=== PATIENT | male | born 1960 | race Caucasian/White ===

== ENCOUNTER 2023-12-06 14:12 | Outpatient (CLI) | payer BC, SELFPAY ==
--- NOTE | ~2023-12-06 | XR_ITS ---
XR hand RT min 3V Ordering provider: Josefa Birmingham MD History: . M65.4 - Radial styloid tenosynovitis [de Quervain] . Comparison: None. FINDINGS: BONES: No acute fracture or dislocation. JOINT SPACES: Narrowing of the proximal and distal interphalangeal joints. SOFT TISSUES: Normal. IMPRESSION: No acute osseous abnormality right hand. Osteoarthritic changes. Reviewed, dictated and finalized at location A.
--- NOTE | ~2023-12-06 | XR_ITS ---
XR hand LT min 3V Ordering provider: Josefa Birmingham MD History: . M65.4 - Radial styloid tenosynovitis [de Quervain] . Comparison: None. FINDINGS: BONES: No acute fracture or dislocation. JOINT SPACES: Narrowing of the proximal and distal interphalangeal joints suggestive of osteoarthriti s. SOFT TISSUES: Unremarkable. IMPRESSION: No acute osseous abnormality left hand. Osteoarthritic changes. Reviewed, dictated and finalized at location A.
== END 2023-12-06 14:13 | disposition home or self-care (01) ==
LOC: ANHIMG 14:19
PROVIDERS: PCP Emergency Medicine; Visit Provider Plastic Surgery
DX: M65.4 Radial styloid tenosynovitis [de Quervain] (principal); G56.03 Carpal tunnel syndrome, bilateral upper limbs; M19.042 Primary osteoarthritis, left hand; M19.041 Primary osteoarthritis, right hand
CPT/HCPCS: 73130

== ENCOUNTER 2024-01-04 13:18 | Outpatient (CLI) | payer BC, SELFPAY ==
--- NOTE | 2024-01-04 14:15 | NEURO_ITS ---
Impression: # Non-diabetic complains of numbness of hands. # Severe bilateral Carpal Tunnel Syndrome. # No ulnar neuropathy. # Needle/EMG exam neurogenic in bilateral APB?s with mild scarcity noted in right extensor muscles. Nerve Conduction Studies Anti Sensory Summary Table Stim Site NR Peak (ms) P-T Amp (?V) Site1 Site2 Delta-P (ms) Dist (cm) David (m/s) Left Median Anti Sensory (2-3nd Digit) NO RESPONSE Wrist NR Wrist 2-3nd Digit 14.0 Wrist NR Wrist 2-3nd Digit 14.0 Right Median Anti Sensory (2-3nd Digit) Wrist 8.3 10.1 Wrist 2-3nd Digit 8.3 14.0 17 Wrist 9.1 17.8 Wrist 2-3nd Digit 8.3 14.0 17 Left Radial Anti Sensory (Base 1st Digit) Wrist 2.0 36.7 Wrist Base 1st Digit 2.0 0.0 Right Radial Anti Sensory (Base 1st Digit) Wrist 2.6 11.9 Wrist Base 1st Digit 2.6 0.0 Left Ulnar Anti Sensory (5th Digit) Wrist 2.9 13.2 Wrist 5th Digit 2.9 14.0 48 Right Ulnar Anti Sensory (5th Digit) Wrist 2.9 10.6 Wrist 5th Digit 2.9 14.0 48 Motor Summary Table Stim Site NR Onset (ms) O-P Amp (mV) Site1 Site2 Delta-0 (ms) Dist (cm) David (m/s) Left Median Motor (Abd Poll Brev) NO RESPONSE Wrist NR Elbow Wrist 32.0 Elbow 9.5 1.6 Right Median Motor (Abd Poll Brev) NO RESPONSE Wrist NR Elbow Wrist 26.0 Elbow NR Left Ulnar Motor (Abd Dig Minimi) Wrist 2.9 5.5 A Elbow Wrist 5.8 32.0 55 A Elbow 8.7 4.9 Right Ulnar Motor (Abd Dig Minimi) Wrist 2.7 6.2 A Elbow Wrist 5.4 32.0 59 A Elbow 8.1 4.8 F Wave Studies NR F-Lat (ms) L-R F-Lat (ms) Left Median (Mrkrs) (Abd Poll Brev) 30.99 Right Median (Mrkrs) (Abd Poll Brev) NO RESPONSE NR Left Ulnar (Mrkrs) (Abd Dig Min) 30.24 0.57 Right Ulnar (Mrkrs) (Abd Dig Min) 29.67 0.57 EMG Side Muscle Nerve Root Ins Act Fibs Amp Dur Recrt Comment Right 1stDorInt Ulnar C8-T1 Nml Nml Nml Nml Nml Right Ext Indicis Radial (Post Int) C7-8 Nml Nml Nml Nml +1 Right Ext Digitorum Radial (Post Int) C7-8 Nml Nml Nml Nml +1 Right BrachioRad Radial C5-6 Nml Nml Nml Nml Nml Right PronatorTeres Median C6-7 Nml Nml Nml Nml Nml Right Abd Poll Brev Median C8-T1 Nml Nml Nml >12ms +3 Right ABD Dig Min Ulnar C8-T1 Nml Nml Nml Nml Nml Left 1stDorInt Ulnar C8-T1 Nml Nml Nml Nml Nml Left Ext Indicis Radial (Post Int) C7-8 Nml Nml Nml Nml Nml Left Ext Digitorum Radial (Post Int) C7-8 Nml Nml Nml Nml Nml Left BrachioRad Radial C5-6 Nml Nml Nml Nml Nml Left PronatorTeres Median C6-7 Nml Nml Nml Nml Nml Left Abd Poll Brev Median C8-T1 Nml Nml Nml >12ms +3 Left ABD Dig Min Ulnar C8-T1 Nml Nml Nml Nml Nml Right Biceps Musculocut C5-6 Nml Nml Nml Nml Nml Right Triceps Radial C6-7-8 Nml Nml Nml Nml Nml Right Deltoid Axillary C5-6 Nml Nml Nml Nml Nml Left Biceps Musculocut C5-6 Nml Nml Nml Nml Nml Left Triceps Radial C6-7-8 Nml Nml Nml Nml Nml Left Deltoid Axillary C5-6 Nml Nml Nml Nml Nml MTDD
== END 2024-01-04 13:19 | disposition home or self-care (01) ==
PROVIDERS: PCP Nurse Practitioner Family; Visit Provider Plastic Surgery
DX: G56.03 Carpal tunnel syndrome, bilateral upper limbs (principal); M65.4 Radial styloid tenosynovitis [de Quervain]
CPT/HCPCS: 95886; 95911

== ENCOUNTER 2024-03-17 13:29 | Outpatient (CLI) | payer BC, SELFPAY ==
[2024-03-17 15:14] LABS: Anion Gap 7 mmol/L (4-12); Blood Urea Nitrogen 14 mg/dL (9-20); Calcium 9.1 mg/dL (8.4-10.2); Carbon Dioxide 30 mmol/L (22-30); Chloride 102 mmol/L (98-107); Estimated Glomerular Filt Rate > 60; Glucose 120 mg/dL (65-110); Potassium 3.5 mmol/L (3.4-5.0); Sodium 139 mmol/L (137-145)
== END 2024-03-17 13:30 | disposition home or self-care (01) ==
LOC: ANHSURGERY 13:32
PROVIDERS: Anesthesiology; PCP Nurse Practitioner Family; Visit Provider Plastic Surgery
DX: Z01.818 Encounter for other preprocedural examination (principal); Z79.899 Other long term (current) drug therapy
CPT/HCPCS: 36415; 80048

== ENCOUNTER 2024-03-22 00:22 | Day surgery (SDC) | payer BC, SELFPAY ==
[2024-03-16 10:30] VITALS: BMI 29.9
--- NOTE | 2024-03-16 10:37 | PC.NURSE ---
Report to the Outpatient Waiting Room, entrance under the green pavilion located off [facility], at time _1100_ on date _[id number]_. Planned Procedure Time: _1pm_.? Time changes happen often and if your time is changed the preop area will call you the afternoon before. - You and your visitor will be asked to self-screen and do not enter if you have any COVID symptoms. Please call surgeon if you need to reschedule. - A mask is optional within the hospital at this time. Patients may have clear liquids (water, carbonated beverages, clear teas, apple juice) until 3 hours prior to surgery with a maximum of 20 ounces. - No food from midnight until time of surgery and no smoking Take only the following medications with a SIP of water on the morning of surgery: __Amlodipine____ DO NOT STOP ANY OF YOUR OTHER PRESCRIPTION MEDICATIONS PRIOR TO SURGERY EXCEPT THE FOLLOWING Medications to discontinue per physician __Multivitamin and patient says he's stopping aspirin also____ Date to take last aofu__[id number]_ Please no make-up, nail swedish, hairspray, perfume, deodorant, or body powder the day of surgery.? No jewelry (including any body piercings) or valuables the day of surgery, leave them at home.? Please take a shower or bath the night before, or the morning of, surgery with an antibacterial soap.? Wear comfortable, loose fitting clothing.? - Jewelry must be removed prior to entering the operating room.? Rings and piercings that are not removed may be cut off. - The hospital will not accept responsibility for valuables.? - Please leave all valuables, including medications, at home the day of surgery. If you are going home after surgery, a licensed skip load driver must drive you home.? - NO public transportation without another adult if you receive anesthesia. - We recommend that an adult stay with you for 24 hours following discharge. - We also recommend that you do not drive, make important decision, drink alcoholic beverages, or take any drugs that were not prescribed by your health care provider for at least 24 hours after your discharge time. Follow any additional instructions given to you from your surgeon. Telephone instructions given to ___George__and asked if any additional questions and then verbalized understanding. Patient advised to call surgeon office or pre surgery nurse liaison [phone] if any additional questions.
--- NOTE | 2024-03-16 10:48 | PC.NURSE ---
Report to the Outpatient Waiting Room, entrance under the green pavilion located off [facility], at time _1100_ on date _[phone]_. Planned Procedure Time: _1pm_.? Time changes happen often and if your time is changed the preop area will call you the afternoon before. - You and your visitor will be asked to self-screen and do not enter if you have any COVID symptoms. Please call surgeon if you need to reschedule. - A mask is optional within the hospital at this time. May have clear liquids (water, carbonated beverages, clear teas, apple juice) until 5am with a maximum of 20 ounces. Nothing to drink after 5am. - No food from midnight until time of surgery and no smoking Take only the following medications with a SIP of water on the morning of surgery: __Amlodipine____ DO NOT STOP ANY OF YOUR OTHER PRESCRIPTION MEDICATIONS PRIOR TO SURGERY EXCEPT THE FOLLOWING Medications to discontinue per physician ___Multivitamin and patient says he's stopping Aspirin also___ Date to take last whlz__[id number]_ Please no make-up, nail ivorian, hairspray, perfume, deodorant, or body powder the day of surgery.? No jewelry (including any body piercings) or valuables the day of surgery, leave them at home.? Please take a shower or bath the night before, or the morning of, surgery with an antibacterial soap.? Wear comfortable, loose fitting clothing.? - Jewelry must be removed prior to entering the operating room.? Rings and piercings that are not removed may be cut off. - The hospital will not accept responsibility for valuables.? - Please leave all valuables, including medications, at home the day of surgery. If you are going home after surgery, a licensed lumber driver must drive you home.? - NO public transportation without another adult if you receive anesthesia. - We recommend that an adult stay with you for 24 hours following discharge. - We also recommend that you do not drive, make important decision, drink alcoholic beverages, or take any drugs that were not prescribed by your health care provider for at least 24 hours after your discharge time. Follow any additional instructions given to you from your surgeon. Telephone instructions given to __George___and asked if any additional questions and then verbalized understanding. Patient advised to call surgeon office or pre surgery nurse liaison [phone] if any additional questions.
--- NOTE | 2024-03-22 07:07 | PM.HPGS ---
History of Present Illness History of Present Illness Chief complaint: radical styloid tenosynovitis,bilat carp tunn synd Narrative: Patient seen and examined in pre-operative holding area. No interval change in medical history or symptoms. Patient recalls previous discussion of benefits and alternatives to procedure. Continues to desire to proceed with left endoscopic possible open carpal tunnel release. Reviewed procedure, post-op expectations and risks including but not limited to bleeding, infection, injury to tendon/nerve/vessel, decreased hand function, stiffness, RSD, no change or worsening of symptoms. I discussed the possible use of assistants and their participation in the case. Patient stated understanding and signed the consent form wishing to proceed. Review of Systems Review of Systems: All systems reviewed & are unremarkable except as noted in HPI and below PMFSH Social History Social History Smoking packs per day: 1 Smoking cigarettes per day: 20.0 Years smoked: 20 Smoking pack-years: 20.00 Smoking status: Former smoker Tobacco type: cigarettes Smoking end date: 03/16/04 Alcohol intake: current Drinks per week: 8 Do You Feel Safe in your Home?: Yes Lack of Transportation: No Lack of Food: Never True Current Housing: I Have Housing Concerned About Future Housing: No Difficulty Paying Gas/Electric Bills: No Difficulty Paying for Meds: No Currently Unemployed: No Education: High School Diploma/GED Difficulty w/ Childcare or Family Care: No Living arrangements: with family Spiritual care concerns: No Meds Home Medications and Allergies Home Medications Medication Instructions Recorded Confirmed Type amlodipine 10 mg tablet 10 mg PO DAILY 03/16/24 03/22/24 History aspirin 81 mg tablet 81 mg PO DAILY 03/16/24 03/22/24 History atorvastatin 20 mg tablet 20 mg PO DAILY 03/16/24 03/22/24 History lisinopril 20 1 tablet PO HS 03/16/24 03/22/24 History mg-hydrochlorothiazide 12.5 mg tablet multivitamin 1 tablet PO DAILY 03/16/24 03/22/24 History tramadol 50 mg tablet 50 mg PO Q6H PRN pain #12 tabs 03/22/24 Rx Allergies Allergy/AdvReac Type Severity Reaction Status Date / Time No Known Allergies Allergy Mild Verified 03/22/24 11:33 Exam Narrative: cont as above Assessment and Plan Assessment and plan (1) Bilateral carpal tunnel syndrome: Code(s): G56.03 - Carpal tunnel syndrome, bilateral upper limbs Status: Acute
--- NOTE | 2024-03-22 07:08 | W.PM.PROC2 ---
Procedure Note - Detailed Date of Procedure 03/22/24 Pre-op Diagnosis left de quervains and carpal tunnel Post-op Diagnosis Same Procedure Performed left ectr Surgeon Josefa Birmingham MD [employer] armando ulloa pa-c Anesthesia MAC Description of Procedure INFORMED CONSENT: The patient was seen and examined and marked in the pre-op area.? The patient signed the consent form. PROCEDURE IN DETAIL:The patient taken back to OR on the stretcher in supine position. Time out performed with anesthesia, surgeon and staff agreeing on patient's name site and surgery to be performed SCDs were placed on the lower extremities and inflated. A tourniquet was placed on {left} upper extremity and antibiotics given IV After anesthesia administered sedation I injected {6}cc 1%lido with epi and 0.5% marcaine plain at the operative site The?{left upper extremity}?was prepped and draped in sterile fashion the??{left upper extremity} was? exsanguinated with Esmarch bandage and tourniquet inflated to 250mmHg I made a transverse incision in the {left} volar distal wrist crease through skin and dermis with 15 blade scalpel.? Littler scissors spread down to antebrachial fascia. A small incision was made in antebrachial fascia allowing access to Carpal tunnel. I proceeded with sequential dilation staying in line with the ring finger and hugging the hook of the hamate.? I then used the synovial elevator to free any adhesions from the underside of the transverse carpal ligament. Next I was able to insert the Microaire endoscopic carpal tunnel device with direct visualization of the transverse fibers on the monitor and proceeded with complete segmental retrograde release of the ligament in its entirety.? I irrigated with normal saline and closed with 4-0 monocryl for dermis and subcuticular closure. A dressing of Dermabond, 4x4, soni, and a volar splint was applied for patient safety, security, and comfort and secured with an demetrio bandage after the tourniquet was let down noting the hand was warm and well perfused. The patient was then awaken from anesthesia and transferred to the recovery room in stable condition.? Complications - none EBL- 0cc Disposition - home in stable conditions Armando Ulloa pa-c was essential for positioning, retraction, closure and dressing placement [facility] Billing Surgery - Charge Forward: Surgery Billing ([id number], [id number] for armando)
[2024-03-22 11:04] VITALS: BP 127/89; PULSE 68; RESP 16; TEMP 36.4; O2SAT 98
[2024-03-22] MEDS: LACTATED RINGERS 1,000 ML 30 ML IV CONT (11:45)
--- NOTE | 2024-03-22 12:14 | WPDANESEPPF ---
Anes - Initial Pre Proc Eval Procedure: Operation Date: 03/22/24 13:00 Proposed Procedures p Left Endoscopic Carpal Tunnel Release, Possible Open, First Extensor Compartment Release - Josefa Birmingham MD Date/Time: 03/22/24 12:14 Surgeon: Josefa Birmingham MD Pre Op Diagnosis: radical styloid tenosynovitis,bilat carp tunn synd Patient Data Age: 63 Gender: M Height: 1.83 m Weight: 106.2 kg Last Vital Signs Temp 36.4 C 03/22/24 11:04 Pulse 68 03/22/24 11:04 Resp 16 03/22/24 11:04 BP 127/89 03/22/24 11:04 Pulse Ox 98 03/22/24 11:04 O2 Del Method Room Air 03/22/24 11:04 Allergies Allergy/AdvReac Type Severity Reaction Status Date / Time No Known Allergies Allergy Mild Verified 03/22/24 11:33 Home Medications Medication Instructions Recorded Confirmed Type amlodipine 10 mg tablet 10 mg PO DAILY 03/16/24 03/22/24 History aspirin 81 mg tablet 81 mg PO DAILY 03/16/24 03/22/24 History atorvastatin 20 mg tablet 20 mg PO DAILY 03/16/24 03/22/24 History lisinopril 20 1 tablet PO HS 03/16/24 03/22/24 History mg-hydrochlorothiazide 12.5 mg tablet multivitamin 1 tablet PO DAILY 03/16/24 03/22/24 History Patient hx anesthesia problems: none Family hx anesthesia problems: none Results Review: All pre-operative results and documents have been reviewed as part of the pre-operative evaluation. [facility] Social History Social History Smoking packs per day: 1 Smoking cigarettes per day: 20.0 Years smoked: 20 Smoking pack-years: 20.00 Smoking status: Former smoker Tobacco type: cigarettes Smoking end date: 03/16/04 Alcohol intake: current Drinks per week: 8 Do You Feel Safe in your Home?: Yes Lack of Transportation: No Lack of Food: Never True Current Housing: I Have Housing Concerned About Future Housing: No Difficulty Paying Gas/Electric Bills: No Difficulty Paying for Meds: No Currently Unemployed: No Education: High School Diploma/GED Difficulty w/ Childcare or Family Care: No Living arrangements: with family Spiritual care concerns: No Anes - Eval Final PreProcedure Day of Procedure 03/22/24 12:14 Patient weight: obese Heart: regular rate and rhythm Lungs: decreased breath sounds Airway: Mallampati scale class II Neurological: alert and oriented Last oral intake: >/= 8 hours ASA classification: III Emergent: no Anesthetic plan: proceed Anesthesia type and monitoring: general GIVS and standard monitoring Results Review: All pre-operative results and documents have been reviewed as part of the pre-operative evaluation. Informed Consent: The patient's anesthetic plan and its attendant risks and benefits were discussed with the patient/family/POA. Questions were solicited and answers provided to the satisfaction of the patient/family/POA.
[2024-03-22] MEDS: ceFAZolin 2 GM/D5W 50 ML 2 GM/50 ML BAG IVPB (13:53)
[2024-03-22] MEDS: BUPivacaine HCL 0.5% PF 30 ML VIAL INFILTRATE (14:00)
[2024-03-22] MEDS: LIDO 1%/EPINEPHRINE 1:100,000 20 ML VIAL INFILTRATE (14:00)
[2024-03-22 14:18] VITALS: BP 98/64; PULSE 70; RESP 14; O2SAT 94
[2024-03-22 14:45] VITALS: BP 116/71; PULSE 60; RESP 20
[2024-03-22 15:15] VITALS: BP 120/70; PULSE 60; RESP 20
== END 2024-03-22 15:25 | disposition home or self-care (01) ==
PROVIDERS: PCP Nurse Practitioner Family; Visit Provider Plastic Surgery
PROC: 01N54ZZ Release Median Nerve, Percutaneous Endoscopic Approach (ICD-10-PCS; CPT 29848; principal; 2024-03-22 13:00)
DX: G56.03 Carpal tunnel syndrome, bilateral upper limbs (principal); E66.9 Obesity, unspecified; Z68.31 Body mass index [BMI] 31.0-31.9, adult; Z79.899 Other long term (current) drug therapy; Z79.82 Long term (current) use of aspirin; Z87.891 Personal history of nicotine dependence
CPT/HCPCS: 29848; J0690; J2004; J2250; J2704; J3010; J7120

== ENCOUNTER 2024-07-19 00:35 | Day surgery (SDC) | payer BC, SELFPAY ==
[2024-07-11 10:05] VITALS: BMI 29.9
--- NOTE | 2024-07-11 10:08 | PC.NURSE ---
Report to the Outpatient Waiting Room, entrance under the green pavilion located off [facility], at time _0730_ on date 07/19/24. Planned Procedure Time: 0930_.? Time changes happen often and if your time is changed the preop area will call you the afternoon before. - You and your visitor will be asked to self-screen and do not enter if you have any COVID symptoms. Please call surgeon if you need to reschedule. - A mask is optional within the hospital at this time. Patients may have clear liquids (water, carbonated beverages, clear teas, apple juice) until 8hours prior to surgery with a maximum of 20 ounces. - No food from midnight until time of surgery and no smoking, or chewing tobacco (or any form of nicotine). No chewing gum, candy or mints. - Infants may have breast milk until 4 hours before surgery, formula 6 hours prior to surgery. - Children will be allowed to drink immediately following surgery.? If applicable, please bring a bottle or sippy cup to assist with drinking. Juice, water, soda, and popsicles are readily available.? For infants on formula, please bring formula the day of surgery.? Pacifiers are allowed. Take only the following medications with a SIP of water on the morning of surgery: AMLODIPINE DO NOT STOP ANY OF YOUR OTHER PRESCRIPTION MEDICATIONS PRIOR TO SURGERY EXCEPT THE FOLLOWING Hold all vitamins and supplements for 3 days per anesthesiologist. Medications to discontinue per physician __ASKING MD ABOUT ASPIRIN Date to take last dose Please no make-up, nail cay[place] islander, hairspray, perfume, deodorant, or body powder the day of surgery.? No jewelry (including any body piercings) or valuables the day of surgery, leave them at home.? Please take a shower or bath the night before, or the morning of, surgery with an antibacterial soap.? Wear comfortable, loose fitting clothing.? Children are encouraged to wear pajamas. - Jewelry must be removed prior to entering the operating room.? Rings and piercings that are not removed may be cut off. - The hospital will not accept responsibility for valuables.? - Please leave all valuables, including medications, at home the day of surgery. If you are going home after surgery, a licensed security patrol driver must drive you home.? - NO public transportation without another adult if you receive anesthesia. - We recommend that an adult stay with you for 24 hours following discharge. - We also recommend that you do not drive, make important decision, drink alcoholic beverages, or take any drugs that were not prescribed by your health care provider for at least 24 hours after your discharge time. For Pediatric surgeries, we recommend two adults accompany the child home. Follow any additional instructions given to you from your surgeon. Telephone instructions given to _PATIENT__and asked if any additional questions and then verbalized understanding. Patient advised to call surgeon office or pre surgery nurse liaison [phone] if any additional questions.
--- OUTSIDE RECORDS SUMMARY | 2024-07-19 00:38 | XMS_ITS | Patient Health Summary ---
Author Organization [facility] Address [address] [place] [address] Care Team Providers Care Rental Coordinator Name Role Phone Unavailable Primary Care Provider Unavailabl e Note from [facility],non-owned Affiliates and Associated Physician Practices is amultiple site organization consisting of ambulatory clinics and hospital sitesin [place], [place], [place] and [place]. This disclosure is being madepursuant to the Care Everywhere program and may not contain all information available regarding this patient. Last updated 18.[facility] Social History Tobacco Use Types Packs/Day Years Used Date Smoking Tobacco: Never Assessed Sex and Gender Information Value Date Recorded Sex Assigned at Not on file Gender Identity Not on file Sexual Orientation Not on file Procedures * DERMATOPATHOLOGY(Performed 02/24/2021) Results * DERMATOPATHOLOGY (02/24/2021 3:33 AM CDT) Case Report Dermatopathology Report Case: [id number] Authorizing Provider: Wagner Shah MD Collected: 02/24/2021 03:33 AM Ordering Location: [facility] Lab Received: 02/26/2021 05:53 AM Pathologist: Pardeep Parekh MD Specimen: Skin, left helix 4:28 PM CDT DERMATOPATHOLOGY LABORATORY Final Diagnosis Specimen A. SKIN, left helix: LENTIGINOUS MELANOCYTIC NEVUS, COMPOUND TYPE, IRRITATED (COMPOUND MELANOCYTIC NEVUS WITH ARCHITECTURAL DISORDER) (D22.22) 4:28 PM CDT DERMATOPATHOLOGY LABORATORY Clinical History Lentigo vs LM. Path# [id number] 4:28 PM CDT DERMATOPATHOLOGY LABORATORY Gross Description Specimen A: Received is one formalin filled container labeled with the patient's name and designated left helix. The specimen consists of a shave biopsy measuring [id number]. Jar 0. 4:28 PM T DERMATOPATHOLOGY LABORATORY Microscopic Description Specimen A. SKIN, left helix: This is a compound nevus. There is melanin pigment in the stratum corneum. There is architectural disorder characterized by a lentiginous proliferation of melanocytes between irregular nevus nests of cells along the dermal epidermal junction. There is underlying fibroplasia of the papillary dermis. The intradermal component is bland in appearance and matures with depth. (Compound Jovon's Nevus or Compound Dysplastic Nevus) 4:28 PM CDT DERMATOPATHOLOGY LABORATORY Disclaimer An external and internal positive and negative controls are appropriate for the histochemical, immunohistochemical and immunofluorescence stain(s) in this case (if any), except where stated explicitly. The performance characteristics of the stain(s) cited in this report were developed and its performance characteristic determined by the Dermatopathology Laboratory at [facility], directed by Dr. David Parekh. These tests need not be, and therefore are not, approved by the [place] Food and Drug Administration. The tests are used for clinical purposes. Billing Codes Specimen Charges Stain Charges 45163 1 4:28 PM CDT DERMATOPATHOLOGY LABORATORY Embedded Images 4:28 PM CDT DERMATOPATHOLOGY LABORATORY Pathology/Cytolo gy TISSUE SPECIMEN FROM SKIN / Unknown 02/24/2021 3:33 AM CDT 02/26/2021 5:53 AM CDT Wagner Shah MD LAB - PATHOLOGY/CYTO LOGY ORDERABLES DERMATOPATHOLOGY LABORATORY [facility] - Department of Dermatology [address], [address] Floor [address] [phone]
--- OUTSIDE RECORDS SUMMARY | 2024-07-19 00:38 | XMS_ITS | Encounter Summary ---
Author Organization [facility] Address [address] [place] [address] Care Team Providers Care Borderer Name Role Phone Unavailable Primary Care Provider Unavailabl e Encounter Details Date Type Department Care Team (Late st Contact Info) Description 02/26/2021 Lab Requisition [facility] DermPath Lab [address] [place] [id number] Wagner Shah MD [address] [place] [address] Social History Tobacco Use Types Packs/Day Years Used Date Smoking Tobacco: Never Assessed Sex and Gender Information Value Date Recorded Sex Assigned at Not on file Gender Identity Not on file Sexual Orientation Not on file documented as of this encounter Plan of Treatment Not on file documented as of this encounter Procedures Procedure Name Priority Date/Time Associated Diagnosis Comments DERMATOPATHOLOGY Routine 02/24/2021 3:33 AM CDT documented in this encounter Results * DERMATOPATHOLOGY (02/24/2021 3:33 AM CDT) Case Report Dermatopathology Report Case: [id number] Authorizing Provider: Wagner Shah MD Collected: 02/24/2021 03:33 AM Ordering Location: [facility] DermPath Lab Received: 02/26/2021 05:53 AM Pathologist: Pardeep Parekh MD Specimen: Skin, left helix 4:28 PM CDT DERMATOPATHOLOGY LABORATORY Final Diagnosis Specimen A. SKIN, left helix: LENTIGINOUS MELANOCYTIC NEVUS, COMPOUND TYPE, IRRITATED (COMPOUND MELANOCYTIC NEVUS WITH ARCHITECTURAL DISORDER) (D22.22) 4:28 PM CDT DERMATOPATHOLOGY LABORATORY Clinical History Lentigo vs LM. Path# [id number] 4:28 PM CDT DERMATOPATHOLOGY LABORATORY Gross Description Specimen A: Received is one formalin filled container labeled with the patient's name and designated left helix. The specimen consists of a shave biopsy measuring [id number]. Jar 0. 4:28 PM CDT DERMATOPATHOLOGY LABORATORY Microscopic Description Specimen A. SKIN, [...] characteristic determined by the Dermatopathology Laboratory at [facility], directed by Dr. David Parekh. These tests need not be, and therefore are not, approved by the [place] Food and Drug Administration. The tests are used for clinical purposes. Billing Codes Specimen Charges Stain Charges 85692 1 4:28 PM CDT DERMATOPATHOLOGY LABORATORY Embedded Images 4:28 PM CDT DERMATOPATHOLOGY LABORATORY Pathology/Cytolo gy TISSUE SPECIMEN FROM SKIN / Unknown 02/24/2021 3:33 AM CDT 02/26/2021 5:53 AM CDT Wagner Shah MD LAB - PATHOLOGY/CYTO LOGY ORDERABLES DERMATOPATHOLOGY LABORATORY [facility] - Department of Dermatology [address], [address] Floor [address] [phone] documented in this encounter Visit Diagnoses Not on filedocumented in this encounter
--- OUTSIDE RECORDS SUMMARY | 2024-07-19 00:38 | XMS_ITS | Encounter Summary ---
Author Organization [facility] Address [facility] [place] [address] Care Team Providers Care Housekeeper Cleaning Cooking Name Role Phone Mitchell Rowley MD Unavailable [phone] Chivo Shah MD Unavailable Sierra Zaragoza NP Primary Care Provider [phone] Encounter Details Date Type Department Care Team (Late st Contact Info) Description 07/17/2024 Orders Only [facility] [address] [place] [address] Eloy Ba, [address] [address] Social History Tobacco Use Types Packs/Day Years Used Date Smoking Tobacco: Former Cigarettes 1 30 1 978 - 2007 Smokeless Tobacco: Never Alcohol Use Standard Drinks/Week Comments Yes 11.7 (1 standard drink = 0.6 oz pure alcohol) socially AUDIT-C Answer Date Recorded Frequency of Alcohol Consumption 2-4 times a wed03/29/2018 Average Number of Drinks Not on file 018 Frequency of Binge Drinking Not on file 10/2017 PHQ-2 Answer Date Recorded Patient Health Questionnaire-2 Score 0 10/29/2023 Sex and Gender Information Value Date Recorded Sex Assigned at Not on file Legal Sex Male 6:56 PM CDT Gender Identity Not on file Sexual Orientation Not on file documented as of this encounter Plan of Treatment Not on file documented as of this encounter Results * (ABNORMAL) BASIC METABOLIC PANEL (07/17/2024 8:37 AM [facility]) GLUCOSE 109(H) 70 - 99 MG/DL 07/17/2024 9:10 AM [facility] BUN 14 7 - 18 MG/DL 07/17/2024 9:10 AM [facility] CREATININE S/P/B 0.85 0.7 - 1.3 MG/DL 07/17/2024 9:10 AM [facility] SODIUM S/P/B 139 136 - 145 MMOL/L 07/17/2024 9:10 AM [facility] POTASSIUM S/P/B 3.9 3.5 - 5.1 MMOL/L 07/17/2024 9:10 AM [facility] CHLORIDE S/P/B 102 100 - 108 MMOL/L 07/17/2024 9:10 AM [facility] CO2 27.9 21 - 32 MMOL/L 07/17/2024 9:10 AM [facility] CALCIUM S/P/B 9.3 8.5 - 10.1 MG/DL 07/17/2024 9:10 AM [facility] ANION GAP 9.1 5 - 15 MMOL/L 07/17/2024 9:10 AM [facility] BUN CREATININE RATIO 16.5 6 - 26 07/17/2024 9:10 AM [facility] GFR ESTIMATE >90 >90 ML/MIN/1.7 3 M2 07/17/2024 9:10 AM [facility] Comment: NOTE: eGFR is not calculated for patients <18 years of age. This is an estimated GFR calculation using the new CKD EPI creatinine equation without race and so does not require a correction factor for race. This estimated GFR should not be used for calculating drug doses. 07/17/2024 8:37 AM PHOTOGRAPH MOUNTER us Eloy Ba MD LABORATORY Final Result [facility] [address] [place] [address], documented in this encounter Visit Diagnoses Diagnosis Essential hypertension, malignant- Primary documented in this encounter Additional Health Concerns Assessment Noted Time PHQ-9 Depression Total Score: 0 10/29/19 8:02 AM CDT documented as of this encounter Care Teams Housekeeper Cleaning Cooking Relationship Specialty [place] [address] [place] [address] PCP - General Nurse Practitioner Family 08/13/21 Mitchell Rowley MD Surgeon HAND SURGERY 07/17/20 Chivo Shah MD [address] [place] [address] Referring Physician DERMATOLOGY 07/17/20 documented as of this encounter
--- OUTSIDE RECORDS SUMMARY | 2024-07-19 00:38 | XMS_ITS | Clinical Summary ---
Author Organization [facility] Address [address] [place] [address] Care Team Providers Care Comparison Shopper Name Role Phone Mitchell Rowley MD Unavailable [phone] Chivo Shah MD Unavailable Sierra Zaragoza NP Primary Care Provider Allergies No known active allergies Medications aspirin 81 MG tablet Take 1 tablet (81 mg total) by mouth daily. 2 Active amLODIPine (NORVASC) 10 MG tabletIndications:E ssential hypertension Take 1 tablet (10 mg total) by mouth daily. 90 tablet 3 4 Active atorvastatin (LIPITOR) 20 MG tabletIndications:M ixed hyperlipidemia Take 1 tablet (20 mg total) by mouth daily. 90 tablet 3 4 Active lisinopril-hydroCHL OROthiazide (ZESTORETIC) 20-12.5 MG tabletIndications:E ssential hypertension Take 1 tablet by mouth daily. 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 Ongoing for approximately 5 years - [id number]. Stem cell donor 02/09/2018 Dupuytren's contracture of right hand 09/30/2016 Obesity (BMI 30-39.9) 09/30/2016 Overview (03/29/2018): Transitioned From: BMI 31.0-31.9,adult Medication management 10/09/2015 Mixed hyperlipidemia 12/16/2011 Resolved Problems Problem Noted Date Diagnosed Date Resolved Date Right lateral epicondylitis 09/30/2016 04/27/2019 Encounters Date Type Department Care Team Description 07/17/2024 8:10 AM [facility] Hospital Encounter [facility] [address] [place] [address] Eloy Ba MD Arrived 07/17/2024 Orders Only [facility] [address] [place] [address] Eloy Ba MD 07/17/2024 Travel from Last 3 Months Immunizations Name Administration Dates Next Due Fluzone 6 Months+ Quad (0.5 mL Prefilled Syringe) 02/13/2022,02/19/2021,03/04/2020, 019,03/29/2018 Influenza (Generic) 04/27/2019,04/01/2018,2017 Influenza Adult (Generic) 03/01/2023 MODERNA COVID-19 (RETORT ENGINEER RADHA ASTER), MRNA, LNP-S, PF, 50 MCG/ 0.25 ML DOSE 2021 Tdap (Boostrix) 11/25/2018 Family History Medical History Relation Comments Heart Attack Father malignant neoplasm of urinary bladder Father No Known Problems Mother Relation Status Comments Father Mother Alive Social History Tobacco Use Types Packs/Day Years Used Date Smoking Tobacco: Former Cigarettes 1 30 1 8 - 2007 Smokeless Tobacco: Never Tobacco Cessation:Counseling Given: No Alcohol Use Standard Drinks/Week Comments Yes 11.7 [...] on file Sexual Orientation Not on file Last Filed Vital Signs Vital Sign Reading Time Taken Comments Blood Pressure 135/80 10/29/2023 7:57 AM CDT Pulse 69 10/29/2023 7:57 AM CDT Temperature 36.2 C (97.2 F) 10/29/2023 7:57 AM CDT Respiratory Rate 16 10/29/2023 7:57 AM CDT Oxygen Saturation 97% 10/29/2023 7:57 AM CDT Inhaled Oxygen Concentration - - Weight 105.8 kg (233 lb 3.2 oz) 10/29/2023 7:57 AM CDT Height 182.9 cm (6') 10/29/2023 7:57 AM CDT Body Mass Index 31.63 10/29/2023 7:57 AM CDT Plan of Treatment Health Maintenance Due Date Last Done Comments Zoster Vaccines (1 of 2) 2009 COVID-19 Vaccine ( season) 2024 2021, 07/28/2020 Influenza Adult (#1) 2024 03/01/2023, 02/13/2022, 02/19/2021, Additional history exists AAA SCREENING 2024 Pneumococcal Vaccine: 65+ Years (1 of 1 - PCV) 2024 PHQ-2 (Physician Leck Kill) 05/24/2024 10/29/2023 RSV Immunization or 60+ Years (1 - Risk 60-74 years 1-dose series) 10/28/2024 Postponed fro m 2019 (Patient Refused) Colorectal Cancer Screening FIT-DNA (3 Years) 11/11/2025 11/11/2022, 11/11/2022 DTaP, Tdap and Td Vaccines (2 - Td or Tdap) 11/25/2028 11/25/2018 Colorectal Cancer Screening Colonoscopy (10 Years) Discontinued 02/24/2012 Hepatitis C Completed 04/27/2019 Meningococcal B Vaccine Aged Out No l onger eligible based on patient's age to complete this topic Meningococcal Vaccine Aged Out No evon malik eligible based on patient's age to complete this topic Pneumococcal Vaccine: Pediatrics (0 to 5 Years) and At-Risk Patients (6 to 64 Years) Aged Out No longer eligible based on patient's age to complete this topic RSV Immunizations Under 20 Months Aged Out No longer eligible based on patient's age to complete this topic Procedures Procedure Name Priority Date/Time Associated Diagnosis Comments BASIC METABOLIC PANEL Routine 07/17/2024 8:37 AM COUNT ROOM CLERK Essential hypertension, malignant COLOGUARD (EXACT SCIENCE) Routine 11/11/2022 6:50 AM CDT Screening for malignant neoplasm of colon HEPATITIS C ANTIBODY Routine 04/27/2019 8:20 AM COUNT ROOM CLERK Need for hepatitis C screening test COLONOSCOPY GENERIC (SCAN ORDER) Routine 02/24/2012 from Last 3 Months or Most Recently Relevant to Health Maintenance Results * (ABNORMAL) BASIC METABOLIC PANEL (07/17/2024 8:37 AM COUNT ROOM CLERK) GLUCOSE 109(H) 70 - 99 MG/DL 07/17/2024 9:10 AM [facility] BUN 14 7 - 18 MG/DL 07/17/2024 9:10 AM [facility] CREATININE S/P/B 0.85 0.7 - 1.3 MG/DL 07/17/2024 9:10 AM [facility] SODIUM S/P/B 139 136 - 145 MMOL/L 07/17/2024 9:10 AM [facility] POTASSIUM S/P/B 3.9 3.5 - 5.1 MMOL/L 07/17/2024 9:10 AM [facility] CHLORIDE S/P/B 102 100 - 108 MMOL/L 07/17/2024 9:10 AM [facility] CO2 27.9 21 - 32 MMOL/L 07/17/2024 9:10 AM [facility] CALCIUM S/P/B 9.3 8.5 - 10.1 MG/DL 07/17/2024 9:10 AM COUNT ROOM CLERK [facility] ANION GAP 9.1 5 - 15 MMOL/L 07/17/2024 9:10 AM [facility] BUN CREATININE RATIO 16.5 6 - 26 07/17/2024 9:10 AM [facility] GFR ESTIMATE >90 >90 ML/MIN/1.7 3 M2 07/17/2024 9:10 AM [facility] Comment: NOTE: eGFR is not calculated for patients <18 years of age. This is an estimated GFR calculation using the new CKD EPI creatinine equation without race and so does not require a correction factor for race. This estimated GFR should not be used for calculating drug doses. 07/17/2024 8:37 AM COUNT ROOM CLERK Eloy Ba MD LABORATORY Final Result [facility] [address] [place] [address], * COLOGUARD (EXACT SCIENCE) (11/11/2022 6:50 AM CDT) COLOGUARD RESULT Negative Negative [email or web address] (CLIA #:[id number]) Comment: NEGATIVE TEST RESULT. A negative Cologuard result indicates a low likelihood that a colorectal cancer (CRC) or advanced adenoma (adenomatous polyps with more advanced pre-malignant features) is present. The chance that a person with a negative Cologuard test has a colorectal cancer is less than 1 in 1500 (negative predictive value >99.9%) or has an advanced adenoma is less than 5.3% (negative predictive value 94.7%). These data are based on a prospective cross-sectional study of 10,000 individuals at average risk for colorectal cancer who were screened with both Cologuard and colonoscopy. (Moira Acosta al, N Engl J Med 2014;370(14):4517-9612) The normal value (reference range) for this assay is negative. COLOGUARD RE-SCREENING RECOMMENDATION: Periodic colorectal cancer screening is an important part of preventive healthcare for asymptomatic individuals at average risk for colorectal cancer. Following a negative Cologuard result, the [place] [employer] Society and U.S. Multi-Society Task Force screening guidelines recommend a Cologuard re-screening interval of 3 years. References: [place] [employer] Guideline for Colorectal Cancer Screening: https://www.cancer.org/cancer/lulzc-eckdyd-sliolx/ctrhclurz-ltxxcewkh-dgvfwxv/ac s-rec ommendations.html.; Ajay DK, Derek CR, Dotty DominguezK, Colorectal Cancer Screening: Recommendations for Physicians and Patients from the U.S. Multi-Society Task Force on Colorectal Cancer Screening , Am J Gastroenterology 2017; 112:4803-8880. TEST DESCRIPTION: Composite algorithmic analysis of stool DNA-biomarkers with hemoglobin immunoassay. Quantitative values of individual biomarkers are not reportable and are not associated with individual biomarker result reference ranges. Cologuard is intended for colorectal cancer screening of adults of either sex, 45 years or older, who are at average-risk for colorectal cancer (CRC). Cologuard has been approved for use by the U.S. FDA. The performance of Cologuard was established in a cross sectional study of average-risk adults aged 50-84. Cologuard performance in patients ages 45 to 49 years was estimated by sub-group analysis of near-age groups. Colonoscopies performed for a positive result may find as the most clinically significant lesion: colorectal cancer [4.0%], advanced adenoma (including sessile serrated polyps greater than or equal to 1cm diameter) [20%] or non- advanced adenoma [31%]; or no colorectal neoplasia [45%]. These estimates are derived from a prospective cross-sectional screening study of 10,000 individuals at average risk for colorectal cancer who were screened with both Cologuard and colonoscopy. (Moira Acosta al, N Engl J Med 2014;370(14):5429-9474.) Cologuard may produce a false negative or false positive result (no colorectal cancer or precancerous polyp present at colonoscopy follow up). A negative Cologuard test result does not guarantee the absence of CRC or advanced adenoma (pre-cancer). The current Cologuard screening interval is every 3 years. ([place] [employer] Society and U.S. Multi-Society Task Force). Cologuard performance data in a 10,000 patient pivotal study using colonoscopy as the reference method can be accessed at the following location: www.[employer].com/results. Additional description of the Cologuard test process, warnings and precautions can be found at www.cologuard.com. STOOL STOOL SPECIMEN / Unknown 11/11/2022 6:50 AM CDT 11/13/2022 7:35 PM CDT Sierra Zaragoza NP BODY FLUIDS AND STOOLS ORDER SYDNEY Final Result Performing Organization Address City/[facility] Co de Phone Number [employer] ([employer] [address] [facility]) [address] [place] [address], [employer] (CLIA #:[id number]) [address] [place] [address] * HEPATITIS C ANTIBODY (04/27/2019 8:20 AM COUNT ROOM CLERK) HEPATITIS C AB NON-REACTI VE NON-REACTI VE 04/27/2019 8:44 PM COUNT ROOM CLERK [facility] 04/27/2019 8:20 AM COUNT ROOM CLERK Rajendra Rae MD LABORATORY Final Res ult Performing Organization Address City/[facility]/ZIP Co de Phone Number [facility] [address] [place] [address], [place] [phone] * COLONOSCOPY (02/24/2012) us Documents Scanned SCANNING Final Result Performing Organization Address City/[facility] Co de Phone Number [facility] [place] from Last 3 Months or Most Recently Relevant to Health [place] [address] [facility] Care Teams Comparison Shopper Relationship Specialty [place] [address] [address] PCP - General Nurse Practitioner Family 08/13/21 Mitchell Rowley MD Surgeon HAND SURGERY 07/17/20 Chivo Shah MD [address] [place] [address] Referring Physician DERMATOLOGY 07/17/20
--- OUTSIDE RECORDS SUMMARY | 2024-07-19 00:38 | XMS_ITS | Encounter Summary ---
Author Organization [facility] Address [address] [place] [address] Care Team Providers Care Sushi Chef Name Role Phone Rajendra Rae MD Primary Care Provider [phone] Mitchell Rowley MD Unavailable [phone] Chivo Shah MD Unavailable [phone] Sierra Zaragoza NP Primary Care Provider [phone] Encounter Details Date Type Department Care Team (Late st Contact Info) Description 07/30/2017 Abstract [facility] CONVERSION [address] [place], [place] [id number] , Isaac Toribio MD Social History Tobacco Use Types Packs/Day Years Used Date Smoking Tobacco: Never Assessed Sex and Gender Information Value Date Recorded Sex Assigned at Not on file Legal Sex Male 6:56 PM CDT Gender Identity Not on file Sexual Orientation Not on file documented as of this encounter Plan of Treatment Not on file documented as of this encounter Visit Diagnoses Not on filedocumented in this encounter Care Teams Sushi Chef Relationship Specialty Start Date End Date Rajendra Rae MD PCP - General INTERNAL MEDICINE 03/29/18 08/12/21 Sierra Zaragoza, SAMMY [address] [place] [address] PCP - General Nurse Practitioner Family 08/13/21 Mitchell Rowley MD Surgeon HAND SURGERY 07/17/20 Chivo Shah MD [address] [place] [address] Referring Physician DERMATOLOGY 07/17/20 documented as of this encounter
--- OUTSIDE RECORDS SUMMARY | 2024-07-19 00:38 | XMS_ITS | Clinical Summary ---
Author Organization [facility] Address [address] [place] [address] Care Team Providers Care Caul Dresser Name Role Phone Unavailable Primary Care Provider Unavailabl e Source Comments [facility],non-owned Affiliates and Associated Physician Practices is amultiple site organization consisting of ambulatory clinics and hospital sitesin [place], [place], [place] and [place]. This disclosure is being madepursuant to the Care Everywhere program and may not contain all information available regarding this patient. Last updated 18.[facility] Social History Tobacco Use Types Packs/Day Years Used Date Smoking Tobacco: Never Assessed Sex and Gender Information Value Date Recorded Sex Assigned at Not on file Gender Identity Not on file Sexual Orientation Not on file Plan of Treatment Health Maintenance Due Date Last Done Comments COLOGUARD (AGES 45-75) - COL ON CA SCREENING 1959 COLON MONITORING 1959 COLONOSCOPY - COLON CA SCREENING 1959 CT COLONOGRAPHY - COLON CA SCREENING 1959 Colorectal Cancer Screening 1959 FIT - COLON CA SCREENING 1959 FLEX SIG - COLON CA SCREENING 1959 LIPID TESTING 1959 HIV SCREENING 1974 HEPATITIS C SCREENING 05/02/1977 DTAP/TDAP/TD VACCINES (1 - Tdap) 1978 PNEUMOCOCCAL VACCINE 50+ (1 of 1 - PCV) 2009 ZOSTER VACCINE (1 of 2) 2009 COVID-19 VACCINE ( - 2023-2 5 season) 2024 INFLUENZA VACCINE (#1) 2024 DEPRESSION SCREENING 05/24/2024 Respiratory Syncytial Virus (RSV) Vaccine Pt: or over 60 yrs (1 - 1-dose 75+ series) 2034 HEPATITIS B VACCINE Aged Out No longe r eligible based on patient's age to complete this topic HIB VACCINE Aged Out No longer eligi ble based on patient's age to complete this topic HPV VACCINE Aged Out No longer eligi ble based on patient's age to complete this topic MENINGOCOCCAL (Group B) VACCINE Aged Out No longer eligible based on patient's age to complete this topic MENINGOCOCCAL VACCINE Aged Out No evon malik eligible based [place]'s [place] [address]
--- OUTSIDE RECORDS SUMMARY | 2024-07-19 00:38 | XMS_ITS | Encounter Summary ---
Author Organization [facility] Address [facility] [place] [address] Care Team Providers Care Waiter/Waitress Dining Car Name Role Phone Mitchell Rowley MD Unavailable [phone] Chivo Sahh MD Unavailable [phone] Sierra Zaragoza NP Primary Care Provider Encounter Details Date Type Department Care Team (Late st Contact Info) Description 07/17/2024 8:10 AM AGENTS' RECORDS CLERK Hospital Encounter [facility] [address] [place] [address] Eloy Ba MD [address] [id number] Arrived Social History Tobacco Use Types Packs/Day Years [...] BASIC METABOLIC PANEL Routine 07/17/2024 8:37 AM AGENTS' RECORDS CLERK Essential hypertension, malignant documented in this encounter Results * (ABNORMAL) BASIC METABOLIC PANEL (07/17/2024 8:37 AM AGENTS' RECORDS CLERK) GLUCOSE 109(H) 70 - 99 MG/DL 07/17/2024 9:10 AM [facility] BUN 14 7 - 18 MG/DL 07/17/2024 9:10 AM [facility] CREATININE S/P/B 0.85 0.7 - 1.3 MG/DL 07/17/2024 9:10 AM [facility] SODIUM S/P/B 139 136 - 145 MMOL/L 07/17/2024 9:10 AM [facility] POTASSIUM S/P/B 3.9 3.5 - 5.1 MMOL/L 07/17/2024 9:10 AM [facility] CHLORIDE S/P/B 102 100 - 108 MMOL/L 07/17/2024 9:10 AM [facility] CO2 27.9 21 - 32 MMOL/L 07/17/2024 9:10 AM [facility] CALCIUM S/P/B 9.3 8.5 - 10.1 MG/DL 07/17/2024 9:10 AM [facility] ANION GAP 9.1 5 - 15 MMOL/L 07/17/2024 9:10 AM [facility] BUN CREATININE RATIO 16.5 6 - 26 07/17/2024 9:10 AM [facility] GFR ESTIMATE >90 >90 ML/MIN/1.7 3 M2 07/17/2024 9:10 AM [facility] Comment: NOTE: eGFR is not calculated for patients <18 years of age. This is an estimated GFR calculation using the new CKD EPI creatinine equation without race and so does not require a correction factor for race. This estimated GFR should not be used for calculating drug doses. 07/17/2024 8:37 AM AGENTS' RECORDS CLERK Eloy Ba MD LABORATORY Final Result Performing Organization Address City/State/[facility] Co de Phone Number [facility] [address] [place] [address], documented in this encounter Visit Diagnoses Diagnosis Essential hypertension, malignant documented in this encounter Additional Health Concerns Assessment Noted Time PHQ-9 Depression Total Score: 0 10/29/19 8:02 AM CDT documented as of this encounter Care Teams Waiter/Waitress Dining Car Relationship Specialty [place] [address] [facility] [address] [place] [address] PCP - General Nurse Practitioner Family 08/13/21 Mitchell Rowley MD Surgeon HAND SURGERY 07/17/20 Chivo Shah MD [address] [place] [address] Referring Physician DERMATOLOGY 07/17/20 documented as of this encounter
--- OUTSIDE RECORDS SUMMARY | 2024-07-19 00:38 | XMS_ITS | Referral Summary ---
Author Organization [facility] Address [address] [facility] [place] [address] Care Team Providers Care Consulting Property Manager Name Role Phone Unavailable Primary Care Provider Unavailabl e Source Comments [facility],non-owned Affiliates and Associated Physician Practices is amultiple site organization consisting of ambulatory clinics and hospital sitesin [place], [place], [place] and [place]. This disclosure is being madepursuant to the Care Everywhere program and may not contain all information available regarding this patient. Last updated 18.[facility] [employer] Social History Tobacco Use Types Packs/Day Years Used Date Smoking Tobacco: Never Assessed Sex and Gender Information Value Date Recorded Sex Assigned at Not on file Gender Identity Not on file Sexual Orientation Not on file Plan of Treatment Not on file Ronny QUIJANO YVES LIEBERMAN [id number]
--- NOTE | 2024-07-19 06:59 | WPDHPUPDATE1 ---
History and Physical Update Update Date/Time: 07/19/24 06:59 Patient seen and examined in pre-operative holding area. No interval change in medical history or symptoms. Patient recalls previous discussion of benefits and alternatives to procedure. Continues to desire to proceed with right endoscopic possible open carpal tunnel release and right first extensor compartment release . Reviewed procedure, post-op expectations and risks including but not limited to bleeding, infection, injury to tendon/nerve/vessel, decreased hand function, stiffness, RSD, no change or worsening of symptoms. I discussed the possible use of assistants and their participation in the case. Patient stated understanding and signed the consent form wishing to proceed.
--- NOTE | 2024-07-19 07:00 | P.OP_ITS ---
Procedure Note - Detailed Date of Procedure 07/19/24 Pre-op Diagnosis right carpal tunnel syndrome and right de quervains Post-op Diagnosis Same (and right volar wrist foreign body) Procedure Performed right ectr and 1st extensor compartment release and right volar wrist foreign body excision Surgeon Josefa Birmingham MD [employer] armando ulloa pa-c Anesthesia MAC Description of Procedure INFORMED CONSENT: The patient was seen and examined and marked in the pre-op area.? The patient signed the consent form. PROCEDURE IN DETAIL:The patient taken back to OR on the stretcher in supine position. Time out performed with anesthesia, surgeon and staff agreeing on patient's name site and surgery to be performed SCDs were placed on the lower extremities and inflated. A tourniquet was placed on {right} upper extremity and antibiotics given IV After anesthesia administered sedation I injected {8}cc 1%lido with epi and 0.5% marcaine plain at the operative sites The?{right upper extremity}?was prepped and draped in sterile fashion the??{right upper extremity} was? exsanguinated with Esmarch bandage and tourniquet inflated to 250mmHg I made a transverse incision in the {right} volar distal wrist crease through skin and dermis with 15 blade scalpel.? Littler scissors spread down to antebrachial fascia. In doing so, a 2mm green, irregular appearing mass or possible foreign body was identified around the fascia. I dissected around the mass and sent to pathology. A small incision was made in antebrachial fascia allowing access to Carpal tunnel. I proceeded with sequential dilation staying in line with the ring finger and hugging the hook of the hamate.? I then used the synovial elevator to free any adhesions from the underside of the transverse carpal ligament. Next I was able to insert the Microaire endoscopic carpal tunnel device with direct visualization of the transverse fibers on the monitor and proceeded with complete segmental retrograde release of the ligament in its entirety.? I irrigated with normal saline and closed with 4-0 monocryl for dermis and hernandez bcuticular closure. Next, I proceeded with making a longitudinal incision over the right 1st extensor compartment with a 15 blade scalpel through skin and dermis. Littler scissors were used to spread through subcutaneous tissue down to the extensor sheath. The dorsal radial sensory nerve was identified and retracted dorsally and protected throughout the procedure. Using a 15 blade scalpel I made an incision on the dorsum of the extensor compartment and then used Littler scissors to spread above it and below it proximally and distally and completed the transection entirely. It was then noted that the EPB was completely encased in separate subsheath. This subsheath was released completely in the same fashion. The APL and EPB tendons were inspected and free of masses and synovitis. The tendons were gliding smoothly in the sheath without subluxation. I irrigated with normal saline and closed with 3-0 Vicryl for dermis and 4-0 Monocryl for subcuticular closure. A dressing of Dermabond, 4x4, soni, and a volar splint was applied for patient safety, security, and comfort and secured with an demetrio bandage after the tourniquet was let down noting the hand was warm and well perfused. The patient was then awaken from anesthesia and transferred to the recovery room in stable condition.? Complications - none EBL- 0cc Disposition - home in stable conditions Armando Ulloa PA-C was essential for positioning, retraction, closure and dressing placement G Billing Surgery - Charge Forward: Surgery Billing ([id number] and [id number] for armando)
[2024-07-19 07:28] VITALS: BP 118/76; PULSE 70; RESP 18; TEMP 36.3; O2SAT 98
[2024-07-19 07:30] VITALS: BMI 31.1
[2024-07-19] MEDS: LACTATED RINGERS 1,000 ML 30 ML IV CONT (07:50)
[2024-07-19 08:12] LABS: Anion Gap 10 mmol/L (4-12); Blood Urea Nitrogen 13 mg/dL (9-20); Calcium 9.2 mg/dL (8.4-10.2); Carbon Dioxide 26 mmol/L (22-30); Chloride 105 mmol/L (98-107); Estimated CRCL calculation 105 ml/min; Estimated Glomerular Filt Rate > 60; Glucose 105 mg/dL (65-110); Potassium 4.1 mmol/L (3.4-5.0); Sodium 141 mmol/L (137-145)
[2024-07-19] MEDS: LIDO 1%/EPINEPHRINE 1:100,000 50 ML VIAL 10 ML INFILTRATE (08:25)
--- NOTE | 2024-07-19 08:32 | P.PNAN_ITS ---
Anes - Initial Pre Proc Eval Procedure: Operation Date: 07/19/24 09:30 Proposed Procedures p Right Endoscopic Carpal Tunnel Release, Possible Open, Right De Quervain's Release - Josefa Birmingham MD Date/Time: 07/19/24 08:32 Surgeon: Josefa Birmingham MD Pre Op Diagnosis: right carpal tunnel syndrome Patient Data Age: 64 Gender: M Height: 1.83 m Weight: 104.2 kg Last Vital Signs Temp 97.3 F L 07/19/24 07:28 Pulse 70 07/19/24 07:28 Resp 18 07/19/24 07:28 BP 118/76 07/19/24 07:28 Pulse Ox 98 07/19/24 07:28 O2 Del Method Room Air 07/19/24 07:28 Allergies Allergy/AdvReac Type Severity Reaction Status Date / Time No Known Allergies Allergy Mild Verified 07/19/24 07:57 Home Medications ?Medication ?Instructions ?Recorded ?Confirmed ?Type amlodipine 10 mg tablet 10 mg PO DAILY 03/16/24 07/19/24 History aspirin 81 mg tablet 81 mg PO DAILY 03/16/24 07/19/24 History atorvastatin 20 mg tablet 20 mg PO DAILY 03/16/24 07/19/24 History lisinopril 20 1 tablet PO HS 03/16/24 07/19/24 History mg-hydrochlorothiazide 12.5 mg tablet multivitamin 1 tablet PO DAILY 03/16/24 07/19/24 History tramadol 50 mg tablet 50 mg PO Q6H PRN pain #12 tabs 07/19/24 Rx Laboratory Tests 07/19/24 07:52 Sodium 141 mmol/L (137-145) Potassium 4.1 mmol/L (3.4-5.0) Chloride 105 mmol/L (98-107) Carbon Dioxide 26 mmol/L (22-30) Anion Gap 10 mmol/L (4-12) BUN 13 mg/dL (9-20) Creatinine 0.76 mg/dL (0.7-1.3) Estim Creat Clear Calc 105 ml/min Estimated GFR > 60 (59 - ) Glucose 105 mg/dL (65-110) Calcium 9.2 mg/dL (8.4-10.2) Patient hx anesthesia problems: none Family hx anesthesia problems: none Results Review: All pre-operative results and documents have been reviewed as part of the pre- operative evaluation. [facility] Social History Social History Smoking packs per day: 1 Smoking cigarettes per day: 20.0 Years smoked: 20 Smoking pack-years: 20.00 Smoking status: Never smoker Tobacco type: cigarettes Smoking end date: 03/16/04 Alcohol intake: current Drinks per week: 8 Do You Feel Safe in your Home?: Yes Lack of Transportation: No Lack of Food: Never True Current Housing: I Have Housing Concerned About Future Housing: No Difficulty Paying Gas/Electric Bills: No Difficulty Paying for Meds: No Currently Unemployed: No Education: High School Diploma/GED Difficulty w/ Childcare or Family Care: No Living arrangements: with family Spiritual care concerns: No Anes - Eval Final PreProcedure Day of Procedure 07/19/24 08:32 Patient weight: obese Lungs: normal air movement Airway: Mallampati scale class II Neurological: alert and oriented Last oral intake: >/= 8 hours ASA classification: II Emergent: no Anesthetic plan: proceed Anesthesia type and monitoring: general GIVS and standard monitoring Results Review: All pre-operative results and documents have been reviewed as part of the pre- operative evaluation. HTN, hyperlipidemia. Informed Consent: The patient's anesthetic plan and its attendant risks and benefits were discussed with the patient/family/POA. Questions were solicited and answers provided to the satisfaction of the patient/family/POA.
[2024-07-19] MEDS: ceFAZolin 2 GM/D5W 50 ML 2 GM/50 ML BAG IVPB (08:58)
[2024-07-19] MEDS: BUPivacaine HCL 0.5% 10 ML AMP INFILTRATE (09:04)
[2024-07-19 09:28] VITALS: BP 110/69; PULSE 76; RESP 16; O2SAT 100
[2024-07-19 09:55] VITALS: BP 129/81; PULSE 61; RESP 16
[2024-07-19 10:16] VITALS: BP 131/83; PULSE 62; RESP 16
== END 2024-07-19 10:25 | disposition home or self-care (01) ==
PROVIDERS: Anesthesiology; PCP Nurse Practitioner Family; Visit Provider Plastic Surgery
PROC: 01N54ZZ Release Median Nerve, Percutaneous Endoscopic Approach (ICD-10-PCS; CPT 29848; principal; 2024-07-19 09:30)
DX: G56.01 Carpal tunnel syndrome, right upper limb (principal); M65.4 Radial styloid tenosynovitis [de Quervain]; M79.5 Residual foreign body in soft tissue; Z87.891 Personal history of nicotine dependence; E66.9 Obesity, unspecified; Z68.31 Body mass index [BMI] 31.0-31.9, adult
CPT/HCPCS: 29848; 25000; 36415; 80048; 88300; J0690; J2004; J2704; J3010; J7120